=== PATIENT | female | born 1960 | race Caucasian/White ===

== ENCOUNTER 2017-11-10 18:23 | Emergency (ER) | payer OTHER ==
[~2017-11-10] VITALS: Ht 160 cm; Wt 73.0 kg
[~2017-11-10 18:23] MED LIST: CLOP75 PO
[2017-11-10 18:25] VITALS: BP 168/75; PULSE 88; RESP 16; TEMP 98.3; O2SAT 97
[2017-11-10] MEDS ORDERED: LEVO75TA3 PO (18:38)
[2017-11-10] MEDS ORDERED: PROT40TA PO (18:38)
[2017-11-10] MEDS ORDERED: PLAV75TA29 PO (18:38)
[2017-11-10] MEDS ORDERED: LOTE0.5S EACH EYE (18:38)
--- NOTE | 2017-11-10 19:01 | PD ---
HPI Chief Complaint: Musculoskeletal Complaint Time Seen by Provider: 18:55 Travel History International Travel<30 days: No Contact w/Intl Traveler<30days: No Traveled to known affect area: No History of Present Illness HPI This is a 57-year-old female here with left lower extremity pain 3 days. She denies injury or trauma. She is concerned this blood clot. She has no prior history of DVT. She is on Plavix for prior CVA. She reports pain in the lateral and posterior aspect of the thigh and the posterior aspect of the knee and calf. No aggravating or alleviating factors. Pain is constant and throbbing. severity is moderate. PFSH Past Medical History Asthma: Yes (few years- resolved since moving to [place] ) Autoimmune Disease: Yes (ashley murillo infection ) Cancer: No Cardiovascular Problems: No Cerebrovascular Accident: Yes Diminished Hearing: No Endocrine: No GERD: Yes Genitourinary: No Musculoskeletal: No Neurologic: Yes (onset today ) Reproductive: No Respiratory: Yes Immunizations Current: Yes Migraines: Yes Thyroid Disease: Yes Tetanus Vaccination: > 5 Years Influenza Vaccination: Yes ?: Not Past Surgical History Section: Yes Gynecologic Surgery: Yes (hysterectomy 2009, 2 c-sections ) Hysterectomy: Yes Oral Surgery: Yes (tosillectomy ) Tonsillectomy: Yes Social History Alcohol Use: No Tobacco Use: No Substance Use: No Allergies-Medications (Allergen,Severity, Reaction): Coded Allergies: aspirin (Unverified Allergy, Unknown, rash, 11/10/17) Reported Meds & Prescriptions Reported Meds & Active Scripts Active Reported Lotemax Opth Drops (Loteprednol Etabonate) 0.5 % Soln 1 Drop EACH EYE QID Levothyroxine (Levothyroxine Sodium) 75 Mcg Tab 75 Mcg PO DAILY Protonix (Pantoprazole Sodium) 40 Mg Tab 40 Mg PO DAILY Plavix (Clopidogrel Bisulfate) 75 Mg Tab 75 Mg PO DAILY Review of Systems Except as stated in HPI: all other systems reviewed are Neg Physical Exam Narrative GENERAL: Alert and well-appearing 57-year-old female SKIN: Warm and dry. HEAD: Normocephalic. EYES: No injection or drainage. NECK: Supple CARDIOVASCULAR: Regular rate and rhythm RESPIRATORY: Breath sounds equal bilaterally. No accessory muscle use. GASTROINTESTINAL: Abdomen soft, non-tender, nondistended. MUSCULOSKELETAL: No cyanosis, or edema. Left lower extremity: +TTP lateral thigh soft tissue, posterior knee. + Homans sign. No pedal edema. 2+ DP pulse. Normal sensation. Brisk cap refill. BACK: Nontender without obvious deformity. No CVA tenderness. Data Data Last Documented VS Vital Signs Date Time Temp Pulse Resp B/P (MAP) Pulse Ox O2 Delivery O2 Flow Rate FiO2 11/10/17 18:25 98.3 88 16 168/75 (106) 97 Orders Orders Us Leg Venous Doppler (11/10/17 18:39) MDM Medical Decision Making Medical Screen Exam Complete: Yes Emergency Medical Condition: Yes Differential Diagnosis Musculoskeletal pain, DVT, Turner cyst Narrative Course 57-year-old female here with nontraumatic left lower extremity pain. The extremity is neurovascularly intact. Ultrasound is negative for DVT. Patient was offered pain medication and declined. She was instructed to take NSAIDs or Tylenol as needed for pain. Follow-up with her primary doctor. Return if she has new worsening symptoms. Diagnosis Primary Impression: Left leg pain Referrals: Primary Care Physician Additional Instructions: Follow-up with her primary doctor this week. Tylenol or ibuprofen as needed for pain. Disposition: 01 DISCHARGE HOME Condition: Stable Mary Auguste Nov 10, 2017 19:01
--- NOTE | 2017-11-10 19:30 | RADRPT ---
EXAM DATE/TIME: 11/10/2017 19:17 [facility] COMPARISON: No previous studies available for comparison. INDICATIONS : Left leg pain. MEDICAL HISTORY : Gastroesophageal reflux disease. Stroke. Thyroid disease. Dizziness. Migraine. Asthma. Ebstein ba rr infection. SURGICAL HISTORY : Tonsillectomy. Hysterectomy. section. ENCOUNTER: Initial ACUITY: 3 days PAIN SCORE: 3/10 LOCATION: Left leg. TECHNIQUE: Venous ultrasound of the leg was performed from the inguinal ligament to the proximal calf. Real-jose e e, color Doppler and spectral tracing, compression and augmentation techniques were used. FINDINGS: There is normal compressibility of the deep venous system from the inguinal region to the proximal ca lf. No echogenic clot is seen in the lumen of the common femoral, femoral, popliteal, and posterior tibial veins. There is a normal response of the venous system to proximal and distal augmentation an d respiration. CONCLUSION: Normal examination. Jorge Ramirez MD on November 10, 2017 at 19:29 Board Certified Radiologist. This report was verified electronically.
== END 2017-11-10 20:10 | disposition home or self-care (01) ==
LOC: PHEFT 18:23
DX: M79.605 Pain in left leg (principal); K21.9 Gastro-esophageal reflux disease without esophagitis; E07.9 Disorder of thyroid, unspecified; J45.909 Unspecified asthma, uncomplicated; Z79.02 Long term (current) use of antithrombotics/antiplatelets; Z79.899 Other long term (current) drug therapy; Z88.6 Allergy status to analgesic agent; Z86.73 Personal history of transient ischemic attack (TIA), and cerebral infarction without residual deficits
CPT/HCPCS: 93971; 99284